=== PATIENT | female | born 1965 | race Caucasian/White ===

== ENCOUNTER 2017-04-30 17:45 | Observation (INO) ==
--- NOTE | 2017-04-30 18:49 | EKG Report ---
Test Performed on : 04/30/2017 6:31:54 PM Test Reason : CP Blood Pressure : / mmHG Vent. Rate : 100 BPM Atrial Rate : 100 BPM P-R Int : 108 ms QRS Dur : 068 ms QT Int : 346 ms P-R-T Axes : 090 091 078 degrees QTc Int : 446 ms Suspect arm lead reversal, interpretation assumes no reversal Sinus rhythm. with short MS Biatrial enlargement Rightward axis Pulmonary disease pattern Abnormal ECG When compared with ECG of 05-MAR-2016 09:18, No significant change was found Unconfirmed Result
[2017-04-30 19:21] LABS: BASO% 0.3 % (0.0-0.8); EOS# 0.01 X1000 (0.0-0.7); EOS% 0.1 % (0.0-10.0); HEMATOCRIT 41.1 % (37.0-47.0); HEMOGLOBIN 12.3 g/dL (12.0-16.0); IMM GRAN# 0.03 X1000 (0.0-0.04); IMM GRAN% 0.3 % (0.0-0.5); LYMPH# 0.75 X1000 (1.2-3.4); LYMPH% 6.5 % (20.5-51.1); MANUAL DIFF NEEDED? YES; MCH 28.3 PG (27-31); MCHC 29.9 g/dL (33-37); MCV 94.5 FL (81-99); MONO# 0.58 X1000 (0.11-0.59); MPV 10.9 FL (7.4-10.4); NEUT% 87.8 % (42.2-75.2); PLT 218 X1000 (130-400); RBC 4.35 XMIL (4.2-5.4)
[2017-04-30 19:30] LABS: BE 17.4 mmoll (-3.0-3.0); BLOOD TYPE ARTERIAL; DRAW SITE R RADIAL; METHB 0.9 % (0.0-1.5); O2(CT) 15.8 mL/dL (15.0-23.0); PO2(98.6) 61 mmHg (60-100); SAMPLE BLOOD; SAO2 92.9 % (95.0-100.0); THB 12.5 g/dL (11.5-17.4); pH(98.6) 7.42 (7.35-7.45)
[2017-04-30 19:34] LABS: PCO2(98.6) 70 mmHg (35-45)
[2017-04-30 19:35] LABS: ALLEN TEST YES; MODALITY CANNULA
[2017-04-30 19:48] LABS: HYPOCHROM 1+; LYMPHS 6 % (21-51); MONO 2 % (1-9)
[2017-04-30 19:55] LABS: AGAP 10; ALKALINE PHOSPHATASE 66 U/L (32-104); BUN 20 mg/dL (8-22); CHLORIDE 92 mmol/L (98-107); COSMO 281; GOT 16 U/L (10-30); GPT 13 U/L (10-36); POTASSIUM 4.3 mmol/L (3.5-5.1); SODIUM 140 mmol/L (136-145); TCO2 38 mmol/L (25-35); TOTAL PROTEIN 6.7 g/dL (6.3-8.3)
[2017-04-30] MEDS ORDERED: NEURONTIN PO ONE (20:59)
[2017-04-30] MEDS ORDERED: NORCO-7.5 ONE (21:10)
[2017-04-30] MEDS ORDERED: DUONEB (A & A) ONE (21:15)
[2017-05-01] MEDS: DUONEB (A & A) INH SCH ×4 (00:28→11:51)
[2017-05-01 00:34] LABS: BE 15.3 mmoll (-3.0-3.0); BLOOD TYPE ARTERIAL; DRAW SITE R BRACHIAL; METHB 1.2 % (0.0-1.5); O2(CT) 15.8 mL/dL (15.0-23.0); PO2(98.6) 62 mmHg (60-100); SAMPLE BLOOD; SAO2 94.3 % (95.0-100.0); THB 12.3 g/dL (11.5-17.4); pH(98.6) 7.42 (7.35-7.45)
[2017-05-01 00:39] LABS: ALLEN TEST YES; MODALITY CANNULA; PCO2(98.6) 66 mmHg (35-45)
[2017-05-01 00:47] LABS: BILIRUBIN URINE NEGATIVE (NEGATIVE); BLOOD URINE 3+ (NEGATIVE); CLARITY SL. CLOUDY (CLEAR); COLOR YELLOW; GLUCOSE URINE NEGATIVE (NEGATIVE); LEUKOCYTES URINE 1+ (NEGATIVE); NITRITE URINE POSITIVE (NEGATIVE); PROTEIN URINE TRACE mg/dL (NEGATIVE); SP GRAVITY URINE 1.015; UROBILINOGEN URINE NORMAL
[2017-05-01 00:49] LABS: UR AMPHETAMINES QUAL NONE DETECTED (NONE DETECT); UR BARBITUATES QUAL NONE DETECTED (NONE DETECT); UR BENZODIAZEPIN QUAL NONE DETECTED (NONE DETECT); UR CANNABINOIDS QUAL NONE DETECTED (NONE DETECT); UR COCAINE QUAL NONE DETECTED (NONE DETECT); UR MDMA QUAL NONE DETECTED (NONE DETECT); UR METHADONE QUAL NONE DETECTED (NONE DETECT); UR METHAMPHETAMINE QUAL NONE DETECTED (NONE DETECT); UR OPIATES QUAL PRESUMPTIVE POSITIVE (NONE DETECT); UR OXYCODONE QUAL PRESUMPTIVE POSITIVE (NONE DETECT); UR PCP QUAL NONE DETECTED (NONE DETECT); UR TCA QUAL NONE DETECTED (NONE DETECT)
[2017-05-01 00:50] LABS: URINE SOURCE CATH; URINE WBC <10 /HPF (<10)
[2017-05-01 00:51] LABS: URINE CULTURE PL NEEDED? YES; URINE EPITHELIAL CELLS <10 /HPF (<10)
--- NOTE | 2017-05-01 06:26 | Diag Imaging Result Doc PS360 ---
EXAM: CHEST-2 VIEWS HISTORY: COUGH TECHNIQUE: COMPARISON: 08/12/2016 FINDINGS: The lungs are hyperexpanded. There is an increased AP diameter to the chest. Heart is not enlarged. No consolidation. No pleural effusions. There is a granuloma in the mid left lung. IMPRESSION: Severe emphysema. No pneumonia. Electronically signed by Randal Escudero 05/01/2017 6:23 AM
[2017-05-01] MEDS ORDERED: DUONEB (A & A) INH PRN (07:30)
[2017-05-01] MEDS ORDERED: ZOFRAN IV PRN (07:30)
[2017-05-01] MEDS ORDERED: SOLU-MEDROL IV SCH (07:30)
[2017-05-01] MEDS ORDERED: TYLENOL PO PRN (07:30)
--- NOTE | 2017-05-01 07:34 | Diag Imaging Result Doc PS360 ---
EXAM: ABDOMEN FLAT/UPRIGHT - 04/30/2017 HISTORY: PAIN TECHNIQUE: Supine and upright abdomen COMPARISON: None. FINDINGS: The bowel gas pattern appears nonspecific and nonobstructive. There is a moderate amount retained fecal debris in the colon. There is no free air identified. There is a 4 mm stone at the right mid abdomen which may represent a stone at the right kidney. IMPRESSION: Nonspecific bowel gas pattern. Apparent constipation. Possible 4 mm stone at right kidney. Electronically signed by Calvin Hooks 05/01/2017 7:32 AM
--- NOTE | 2017-05-01 11:18 | HISTORY AND PHYSICAL ---
PRIMARY CARE PHYSICIAN: Dr. Humphries. CHIEF COMPLAINT: Increased shortness of breath, body aches, headache, nausea, vomiting. HISTORY OF PRESENTING ILLNESS: This is a 51-year-old female, who presented to [facility] ER with complaints of headache, shortness of breath, diarrhea, nausea, vomiting and generalized body aches. She did not notify the ER that she was on hospice and has been on for approximately a year and 2 months with [facility]. She also did not call the hospice organization to let them know that she was feeling this way. Work up showed severe emphysema. She wears O2 via nasal cannula at 4 L via nasal cannula at home. She was saturating 97% on 4 L when she arrived to the emergency room. Her blood pressure was mildly elevated at 152/124, now down to 164/89. She was admitted for further evaluation and treatment. PAST MEDICAL HISTORY: Hypertension, hyperlipidemia, end-stage COPD, cervical cancer, diabetes type 2. PAST SURGICAL HISTORY: Hysterectomy. FAMILY HISTORY: Noncontributory. SOCIAL HISTORY: She currently lives with family. Denies any tobacco, alcohol, or illicit drug use currently. ALLERGIES: Ambien. HOME MEDICATIONS: She takes. DuoNeb q.4 hours. ProAir 2 puffs inhalation 4 times daily. Dulcolax 5 mg p.o. daily p.r.n., Symbicort 1 puff inhalation b.i.d., Klonopin 1 mg p.o. t.i.d. p.r.n., Colace 100 mg p.o. daily p.r.n., duloxetine 60 mg p.o. daily, Neurontin 600 mg p.o. 4 times daily. Indomethacin 50 mg p.o. b.i.d. p.r.n., Ativan 0.5 mg p.o. q.4 hours p.r.n., Glucophage XR 500 mg p.o. daily. Montelukast Sodium 10 mg p.o. at bedtime. MS Contin 60 mg p.o. q.12 hours. Roxanol concentrated liquid 1 mL p.o. q.1 hour p.r.n., Zofran 4 mg p.o. q.6 hours p.r.n., Percocet 10 mg 1 p.o. q.4 hours p.r.n., Maxalt 5 mg p.o. daily p.r.n. Spiriva 1 puff inhalation daily, and trazodone 50 mg p.o. at bedtime. LABORATORY DATA: Showed a white blood cell count of 11.53, hemoglobin 12.3, hematocrit 41.1. Platelets 218. ABG showed a pH of 7.42, pCO2 of 70. O2 of 61. Bicarb 38.3. Sodium 140, potassium 4.3, chloride 92. CO2 of 38. BUN of 20. Creatinine 0.3, glucose 87. Creatinine kinase of 71, troponin less than 0.010. ProBNP of 399. TSH of 0.09. Urinalysis showed positive nitrites, 1+ white blood cells, 4+ bacteria. Urine drug screen was presumptive positive for opiates and oxycodone. Chest x-ray showed severe emphysema, but no pneumonia. An abdominal x-ray showed a nonspecific bowel gas pattern and some apparent constipation with a possible 4 mm stone at the right kidney. REVIEW OF SYSTEMS: She was positive for a headache, shortness of breath. Diarrhea, nausea, vomiting, body aches. Otherwise, negative review of systems. PHYSICAL EXAMINATION: VITAL SIGNS: On arrival, showed a temperature of 98.3, pulse 107, respirations 18, blood pressure 152/124, saturating 97% on 4 L via nasal cannula. GENERAL: This is a 51-year-old female who is lying in the bed, and answers questions appropriately. HEENT: Normocephalic and atraumatic. Pupils are equal, round, and reactive to light. Extraocular movements are intact. Oropharynx and nares are clear. NECK: Supple. LUNGS: With decreased breath sounds throughout entire posterior lung sim. Equal lung expansion and chest wall movement noted. HEART: With regular rate and rhythm. No murmurs, rubs, or gallops. ABDOMEN: There was some tenderness to her left lower quadrant on palpation. Bowel sounds present x4 quadrants. EXTREMITIES: No clubbing, cyanosis, or edema. NEUROLOGICAL: The cranial nerves 2-12 are grossly intact. ASSESSMENT: 1. Acute chronic obstructive pulmonary disease exacerbation. 2. Urinary tract infection. 3. Hypertension. 4. Diabetes type 2. PLAN: She was admitted to the medical unit. Placed on telemetry. O2 per protocol. Diabetic diet. Placed on Solu-Medrol 60 mg IV q.8. Zofran 4 mg IV q.4 p.r.n., DuoNeb q.2 p.r.n. and q.[address]. [address] her on Levaquin 500 mg p.o. daily. Dictated by JOANNA Cox for Albaro Aly MD cc: JOANNA Cox MD Dr. Powell
[2017-05-01 12:21] VITALS: BP 155/89
--- NOTE | 2017-05-01 15:31 | DISCHARGE SUMMARY ---
ADMISSION DATE: 04/30/2017 DISCHARGE DATE: 05/01/2017 PRIMARY CARE PHYSICIAN: Daniel Humphries MD. ADMISSION DIAGNOSES: 1. Acute chronic obstructive pulmonary disease exacerbation. 2. Urinary tract infection. 3. Hypertension. 4. Diabetes type 2. DISCHARGE DIAGNOSES: 1. Acute chronic obstructive pulmonary disease exacerbation. 2. Urinary tract infection. 3. Hypertension. 4. Diabetes type 2. SUMMARY OF FINDINGS: This is a 51-year-old, female who presented to [facility] ER after having a headache, shortness of breath, diarrhea and body aches. After she was admitted it was learned that she is on [facility] and has been with them for the past year and 2 months she did not notify the hospice organization prior to coming to the emergency room and got admitted with an acute chronic obstructive pulmonary disease exacerbation that is end stage for this patient. She was also noted to have a urinary tract infection so the hospice nurse evaluated her this morning and attending Dr. Aly evaluated her and it is felt that she can safely be discharged home with antibiotics and Medrol Dosepak, and continue her home O2 and safely be discharged back under hospice care. All instructions were reviewed with the patient and she verbalizes understanding. DISCHARGE MEDICATIONS: 1. She will receive a prescription for Levaquin 500 mg 1 p.o. daily for 7 days, a Medrol Dosepak to take as directed and she will continue her home medications of: 2. DuoNeb q.4 hours. 3. ProAir 2 puffs 4 times daily. 4. Dulcolax 5 mg p.o. daily p.r.n. 5. Symbicort 160, 1 puff inhalation b.i.d. 6. Klonopin 1 mg p.o. t.i.d. p.r.n. 7. Colace 100 mg p.o. daily. 8. Duloxetine 60 mg p.o. daily. 9. Gabapentin 600 mg p.o. 4 times daily. 10. Indomethacin 50 mg p.o. b.i.d. p.r.n. 11. Ativan 0.5 mg p.o. q.4 hours p.r.n. 12. Glucophage XR 500 mg p.o. daily. 13. Montelukast sodium 10 mg p.o. at bedtime. 14. Morphine ER 60 mg p.o. q.12 hours. 15. Roxanol liquid 20 mg/mL, give 1 mL p.o. q.1 hour p.r.n. 16. Zofran 4 mg p.o. q.6 hours p.r.n. 17. Percocet 10 1 p.o. q.4 hours p.r.n. 18. Maxalt 5 mg p.o. daily p.r.n. 19. Spiriva 1 inhalation daily. 20. Trazodone 50 mg p.o. at bedtime. FOLLOWUP: She will follow up with hospice as previous. TOTAL TIME SPENT ON DISCHARGE: 35 minutes. Dictated by JOANNA Cox for Albaro Aly MD cc: JOANNA Cox MD Joel Alonzo Powell, Jr, MD Joel A. Powell
[2017-05-02] MEDS ORDERED: NORCO-7.5 PO ONE (21:00)
== END 2017-05-01 13:57 | disposition hospice, home (50) ==
LOC: P.MEDSURG 17:45 → P.ED 17:45
PROVIDERS: ATTEND Nurse Practitioner Family